=== PATIENT | female | born 1970 | race Caucasian/White ===

== ENCOUNTER 2017-07-04 17:46 | Emergency (ER) | payer OTHER ==
[~2017-07-04] VITALS: Ht 172.7 cm; Wt 118.2 kg
[2017-07-04 18:20] VITALS: BP 111/80; PULSE 83; RESP 18; O2SAT 100
--- NOTE | 2017-07-04 18:41 | ED.REPORT ---
HPI-Abd Pain F 40 and Over Date of Service Jul 04, 2017 ED Provider: Cuauhtemoc Luna MD A 46 year old female with a history of cholecystectomy, kidney stones, thyroid disease and acid reflux is referred to the ED from Urgent Care complaining of lower abdominal pain, more prominent in the left side. The pain has been present for three weeks but worsened in the last week. This has been accompanied by diarrhea for three weeks. The diarrhea occurs after the pt eats anything and is described as "greasy, loose and foul-smelling with mucus." The pt experiences approximately five episodes of diarrhea after she eats. This is accompanied by intermittent nausea, though the pt denies vomiting, hematochezia or dysuria. The pt has been drinking well water since 08/2016, but does not believe that this is related to her symptoms. She denies similar symptoms previously, in addition to any history of irritable bowel syndrome. The pt has not been on antibiotics recently. Nursing Notes Stated Complaint: LOWER ABDOMINAL PAIN Chief Complaint: Female Abdominal Pain Nursing Notes Reviewed: Yes Allergies: Coded Allergies: amoxicillin (Verified Allergy, Intermediate, 07/04/17) oxycodone (Verified Adverse Reaction, Severe, nausea, 07/04/17) acetaminophen (Verified Adverse Reaction, Unknown, flu like symptoms, ) Scheduled Ondansetron ODT (Ondansetron ODT) 4 Mg Tab.rapdis 4 MG PO QID General Time Seen by MD: 18:41 Chief Complaint Other (Diarrhea) Hx Obtained From: Patient Arrived By: Walk-in Sudden in Onset?: No Onset Occurred: More than a week ago... (3 weeks) Symptom Duration: Intermittent Recent Healthcare: Recent doctor visit Similar Sx Previous: No Past Medical History Past Medical History Notes: PCP: Dr. Darlin Dacosta ([place]) Past Medical History kidney stones thyroid disease acid reflux Past Surgical History kidney stone removal Reports: , Cholecystectomy Reports: Tubal ligation Smoking History Unknown if Ever Smoker Social History Alcohol Use: In recovery Drug Use: THC Other Social History: Good social support Ambulatory Status Independent Review of Systems Constitutional: Denies: Fever Respiratory: Denies: Non-productive cough, Shortness of breath Cardiovascular: Denies: Chest pain GI: Reports: Abdominal pain, Diarrhea, Nausea, Denies: Hematochezia, Vomiting Female: Denies: Dysuria Musculoskeletal: Denies: Back pain, Neck pain Complete sys rev & neg: except as marked. Physical Exam Vital Signs Vital Signs (First) Date Time Temp Pulse Resp B/P Pulse Ox O2 Delivery O2 Flow Rate FiO2 07/04/17 18:20 36.8 83 18 111/80 100 Room Air Initial VS: Reviewed General/Constitutional: Awake, Alert Respiratory / Chest: Atraumatic, Breath sounds NL, Breath sounds = bilat, No respiratory distress Cardiovascular: Heart rate NL, Regular rhythm, Heart sounds NL, No gallop, No murmurs, No rubs Abdomen: Soft Bowel Sounds / Distention: Positive: Bowel sounds hyperactive diffusely tender, most remarkable in the LLQ voluntary guarding right CVAT Back: Atraumatic, Full range of motion Head / Eyes: Atraumatic, Normocephalic, PERRL, EOMI ENT: Atraumatic, Airway patent, Mucous membranes moist Skin: Atraumatic, Color NL, No rash, Warm, Dry Neurologic: Oriented X3, Speech NL, No motor deficits, No sensory deficits Neck: Atraumatic, Supple, Full range of motion Upper Extremity / MS: Atraumatic, Full range of motion Lower Extremity / Pelvis / MS: Atraumatic, Full range of motion Psychiatric: Affect NL, Mood NL Interpretation & Diagnostics Lab Results Interpretation Result Diagram: 07/04/17192107/04/171921 Test 07/04/17 19:03 07/04/17 19:22 Urine Color Yellow (YELLOW) Urine Appearance Clear (CLEAR,HAZY) Urine pH 5.5 (5.0-8.0) Urine Specific [place] 1.015 (1.003-1.035) Urine Protein Negativemg/dL (NEG,TRACE) Urine Glucose (UA) Negativemg/dL (NEGATIVE) Urine Ketones Negativemg/dL (NEGATIVE) Urine Occult Blood Negative (NEGATIVE) Urine Nitrite Negative (NEGATIVE) Urine Bilirubin Negative (NEGATIVE) Urine Urobilinogen Normalmg/dL (NORMAL) Urine Leukocyte Esterase Negative (NEGATIVE) Urine RBC 0-2/hpf (0-2) Urine WBC 0-5/hpf (0-5) Urine Epithelial Cells Moderate/hpf (NONE-MOD) Urine Crystals None seen (NONE SEEN) Urine Bacteria Moderate/hpf (NONE-FEW) Urine Hyaline Casts None/lpf (NONE) Urine Granular Casts None seen (NONE SEEN) Urine Waxy Casts None seen (NONE SEEN) Urine Red Blood Cell Casts None seen (NONE SEEN) Urine White Blood Cell Casts None seen (NONE SEEN) Urine Mucus None seen (None Seen) Urine Trichomonas None seen (NONE SEEN) Urine Yeast None (NONE SEEN) Urinalysis Comment None Urine Culture Reflexed Indicated White Blood Count 10.7th/mm3 (3.8-10.1) Red Blood Count 4.21mil/mm3 (3.90-5.20) Hemoglobin 13.5g/dL (12.0-15.6) Hematocrit 39.5% (35.0-46.0) Mean Corpuscular Volume 93.8fL (81-100) Mean Corpuscular Hemoglobin 32.1pg (27.0-35.0) Mean Corpuscular Hemoglobin Concent 34.2% (32.0-37.0) Red Cell Distribution Width 12.5% (12.3-15.4) Platelet Count 333bil/L (150-400) Neutrophils (%) (Auto) 64.3% (40-74) Lymphocytes (%) (Auto) 26.1% (14-46) Monocytes (%) (Auto) 6.9% (4-12) Eosinophils (%) (Auto) 1.9% (0-5) Basophils (%) (Auto) 0.7% (0-3) Sodium Level 139mEq/L (134-144) Potassium Level 4.0mEq/L (3.5-5.2) Chloride Level 105mEq/L (97-108) Carbon Dioxide Level 21mmol/L (18-29) Blood Urea Nitrogen 19mg/dL (6-24) Creatinine 0.83mg/dL (0.57-1.00) Estimat Glomerular Filtration Rate 107mL/min (>59) Glucose Level 104mg/dL (60-99) Calcium Level 8.8mg/dL (8.5-10.1) Magnesium Level 1.9mg/dL (1.6-2.6) Total Bilirubin 0.3mg/dL (0.0-1.2) Aspartate Amino Transf (AST/SGOT) 20U/L (0-50) Alanine Aminotransferase (ALT/SGPT) 18U/L (0-32) Alkaline Phosphatase 63U/L (25-150) Total Protein 6.8g/dL (6.4-8.4) Albumin 3.8g/dL (3.4-5.0) Lipase 37U/L (13-60) Hold [place] Top Tube Received (Received) CT Abd / Pelvis Interpretation IMPRESSION: 1. No acute process. 2. Normal appendix. 3. Hepatomegaly. Dictated by: Hilary Lim M.D. on 07/04/2017 at 20:12 Approved by: Hilary Lim M.D. on 07/04/2017 at 20:14 Interpretation / Wet Read by: Interpret - Radiologist Re-Eval/Medical Decision Source of Hx: Old records Re-Evaluation/Progress : Time of Eval: 22:12 Patient Status: Condition improved Re-Evaluation/Progress Note: Pt rechecked, who is comfortable. The diagnosis and plan for discharge are discussed. The pt understands and agrees with the plan. All questions are addressed at this time. Counseled Regarding: Diagnosis, Lab results, Need for follow-up, When/why to return to ED Discharge & Departure Primary Impression: Generalized abdominal pain Additional Impression: Diarrhea of presumed infectious origin Disposition: Home Discharge Condition All VS Reviewed: Yes Condition: Stable Patient Instructions: Acute Abdominal Pain (ED) Additional Instructions: Emergency department evaluation tonight included interview, examination, labs, CT scan of abdomen and pelvis. Stool was sent for diagnostic studies, results from this should be available tomorrow. No serious cause for abdominal pain is identified tonight, please call tomorrow after 10 AM for results of "stool PCR panel". This should help us determine if you diarrhea is caused by an infectious agent. May use ondansetron as needed for nausea. Be sure to get adequate fluids, solid foods as tolerated. Return emergency Department for fevers, shaking chills uncontrolled vomiting blood and diarrhea or severe abdominal pain. May use acetaminophen and/or ibuprofen as needed for pain. Follow-up with primary care next week. Referrals: OTHER,PHYSICIAN Scribe Attestation Portions of this note were transcribed by Kayden Dean. I, Dr. Luna personally performed the history, physical exam and medical decision-making; I reviewed and confirmed the accuracy of the information in the transcribed note. Cuauhtemoc Luna MD Jul 04, 2017 18:41 KAYDEN DEAN Jul 04, 2017 19:26
[2017-07-04 19:21] LABS: APPEARANCE,URINE CLEAR (CLEAR,HAZY); COLOR,URINE YELLOW (YELLOW); OCCULT BLOOD,URINE NEGATIVE (NEGATIVE); PH,URINE 5.5 (5.0-8.0); UROBILINOGEN,URINE NORMAL (NORMAL)
[2017-07-04 19:26] LABS: BASOPHILS % (AUTO) 0.7 % (0-3); EOSINOPHILS % (AUTO) 1.9 % (0-5); MONOCYTES % (AUTO) 6.9 % (4-12); Mean Corpuscular Hemoglobin 32.1 pg (27.0-35.0); Mean Corpuscular Volume 93.8 fL (81-100); NEUTROPHILS % (AUTO) 64.3 % (40-74); Platelet Count 333 bil/L (150-400)
[2017-07-04 19:50] LABS: Magnesium 1.9 mg/dL (1.6-2.6)
--- NOTE | 2017-07-04 20:15 | DRSVH ---
PROCEDURE: CT ABDOMEN AND PELVIS WITH CONTRAST ([id number]) INDICATIONS: abd pain TECHNIQUE: After the administration of intravenous contrast, 5 mm thick sections acquired from the diaphragm to the symphysis. 5 mm coronal and sagittal reformats were acquired. For radiation dose reduction, the following was used: automated exposure control, adjustment of mA and/or kV according to patient siz e. COMPARISON: None. FINDINGS: Image quality: Excellent. ABDOMEN: Lung bases: Lung bases are clear. Heart size is normal. Solid organs: Liver is enlarged, measuring 21.4 cm craniocaudal. Hepatosplenic enhancement is within normal limits. Gallbladder is surgically absent. Biliary system is non dilated. Pancreas enhances normally. No adrenal nodules. Kidneys demonstrate normal size and enhancement, without hydronephros is. Peritoneum and bowel: Bowel loops demonstrate normal wall thickness and caliber. No free fluid or a ir. Normal appendix. Diverticulosis of the descending and sigmoid colon. No evidence of acute divert iculitis. Nodes and vessels: No retroperitoneal or mesenteric adenopathy by size criteria. Aorta and inferior vena cava are normal in size. Miscellaneous: There is a small fat containing umbilical hernia. PELVIS: Genitourinary: Bladder wall thickness is normal. Miscellaneous: No inguinal hernias or adenopathy. Bones: No suspicious bony lesions. No vertebral body compression fractures. IMPRESSION: 1. No acute process. 2. Normal appendix. 3. Hepatomegaly. Dictated by: Hilary Lim M.D. on 07/04/2017 at 20:12 Approved by: Hilary Lim M.D. on 07/04/2017 at 20:14
[2017-07-04 21:31] VITALS: BP 103/54; PULSE 70; RESP 20; O2SAT 100
[2017-07-04] MEDS ORDERED: ONDA4TAB12 PO (22:25)
[2017-07-04] MEDS ORDERED: _Ondansetron ODT 4 mg Tablet PO PRN (22:25)
[2017-07-04 22:42] VITALS: BP 101/67; PULSE 69; RESP 18; O2SAT 98
[2017-07-04 22:55] VITALS: BP 101/67; PULSE 69; RESP 18; O2SAT 98
== END 2017-07-04 22:56 | disposition home or self-care (01) ==
LOC: SED 17:46
DX: R10.84 Generalized abdominal pain (principal); R19.7 Diarrhea, unspecified; E07.9 Disorder of thyroid, unspecified; K21.9 Gastro-esophageal reflux disease without esophagitis; Z87.442 Personal history of urinary calculi; Z98.890 Other specified postprocedural states; Z88.1 Allergy status to other antibiotic agents; Z88.5 Allergy status to narcotic agent; Z88.6 Allergy status to analgesic agent
CPT/HCPCS: 36415; 74177; 80053; 81000; 81002; 81025; 83690; 83735; 85025; 87086; 87088; 87507; 96374; 99285; G0463; J1885; Q9967